=== PATIENT | male | born 1995 | race Caucasian/White ===

== ENCOUNTER 2017-02-16 22:19 | Emergency (ER) | payer OTHER ==
[2017-02-16 22:29] VITALS: BP 129/89
[2017-02-16] MEDS ORDERED: Tetan/Diph/Pertus SYR(Tdap)* 0.5 ML SYR(BOOSTRIX) use SYR IM ONE (23:33)
--- NOTE | 2017-02-16 23:53 | ED ---
Skin Complaint - HPI Summary HPI Summary: Patient presents to the ED with request for tetanus. Tetanus is > 10 years old. He states 2 nights ago he was scraped on the posterior right shoulder with wood and "dirty nails." It was unknown at the time there were nails, and he states he came today after finding that out. He denies any symptoms and notes to no pain over the area. He is otherwise healthy, takes no medication and has no allergies. He denies any pain, no numbness, tingling, temperature or color changes to the area. - History of Current Complaint Chief Complaint: EDGeneral Time Seen by Provider: 02/16/17 23:08 Stated Complaint: CUT ON BACK/NEEDS TETANUS SHOT Hx Obtained From: Patient Onset/Duration: Started Days Ago Skin Exposure Onset/Duration: Days Ago Onset Severity: Mild Current Severity: Mild Pain Intensity: 0 Pain Scale Used: 0-10 Numeric Skin Location: Other: - posterior soulder Aggravating Symptom(s): Nothing Alleviating Symptom(s): Nothing Associated Signs & Symptoms: Negative Related History: Trauma - Allergy/Home Medications Allergies/Adverse Reactions: Allergies Allergy/AdvReac Type Severity Reaction Status Date / Time No Known Allergies Allergy Verified 02/16/17 22:26 PMH/Surg Hx/FS Hx/Imm Hx Previously Healthy: Yes - Immunization History Hx Pertussis Vaccination: No Immunizations Up to Date: Unable to Obtain/Confirm Infectious Disease History: No Infectious Disease History: Denies: Traveled Outside the [place] in Last 30 Days - Social History Occupation: Unemployed Lives: With Family Alcohol Use: Rare Hx Substance Use: No Substance Use Type: Reports: None Hx Tobacco Use: No Smoking Status (MU): Never Smoked Tobacco Review of Systems Constitutional: Negative Eyes: Negative Cardiovascular: Negative Gastrointestinal: Negative Genitourinary: Negative Positive: no symptoms reported, see HPI Musculoskeletal: Negative Positive: Other - abrasion over the posterior shoulder Neurological: Negative Psychological: Normal All Other Systems Reviewed And Are Negative: Yes Physical Exam Triage Information Reviewed: Yes Vital Signs On Initial Exam: Initial Vitals Temp Pulse Resp BP Pulse Ox 97 F 68 16 129/89 97 02/16/17 22:27 02/16/17 22:27 02/16/17 22:27 02/16/17 22:27 02/16/17 22:27 Vital Signs Reviewed: Yes Appearance: Positive: Well-Appearing, Well-Nourished Skin: Positive: Warm, Skin Color Reflects Adequate Perfusion, Other - abrasions to the right posterior shoulder Head/Face: Positive: Normal Head/Face Inspection Eyes: Positive: EOMI, TIA, Conjunctiva Clear Neck: Positive: Supple, Nontender, No Lymphadenopathy Respiratory/Lung Sounds: Positive: Clear to Auscultation, Breath Sounds Present Cardiovascular: Positive: Normal, RRR, Pulses are Symmetrical in both Upper and Lower Extremities Musculoskeletal: Positive: Normal, Strength/ROM Intact Neurological: Positive: Speech Normal Psychiatric: Positive: Normal AVPU Assessment: Alert - [place] Coma Scale Best Eye Response: 4 - Spontaneous Best Motor Response: 6 - Obeys Commands Best Verbal Response: 5 - Oriented Diagnostics - Vital Signs Vital Signs Temp Pulse Resp BP Pulse Ox 02/16/17 22:27 97 F 68 16 129/89 97 - Laboratory Lab Statement: Any lab studies that have been ordered have been reviewed, and results considered in the medical decision making process. Course/Dx - Course Course Of Treatment: Request for tetanus. Posterior right shoulder with old abrasions x 2 days ago possibly from wood vs. nails. Patient states tetanus is > 10 years old. No symptoms and denies any pain. Information given on tetanus. Tetanus booster given. - Differential Diagnoses - Skin Complaint Differential Diagnoses: Other - tetanus, abrasions, skin lesions - Diagnoses Provider Diagnoses: Need for tetanus booster Discharge - Discharge Plan Condition: Stable Disposition: HOME Patient Education Materials: Diphtheria/Pertussis/Tetanus Vaccine (By injection ), Tetanus (ED) [facility] - Additional Instructions: Follow up at [facility] if you develop any symptoms.
== END 2017-02-16 23:57 | disposition home or self-care (01) ==
LOC: ED 22:19
DX: S20.411A Abrasion of right back wall of thorax, initial encounter (principal); W45.0XXA Nail entering through skin, initial encounter; Y93.9 Activity, unspecified; Y92.9 Unspecified place or not applicable
CPT/HCPCS: 90471; 90715; 99281